=== PATIENT | female | born 1950 | race Asian ===

== ENCOUNTER 2023-02-27 20:28 | Emergency (ER) | payer OTHER ==
[~2023-02-27] VITALS: Ht 165.1 cm; Wt 73.5 kg
[2023-02-27 20:28] VITALS: BP 165/96; TEMP 98.2
[2023-02-27 21:03] LABS: PLATELET COUNT 571 K/uL (152-353)
[2023-02-27 21:12] LABS: POTASSIUM 3.1 mmol/L (3.6-5.2)
[2023-02-28] MEDS ORDERED: AMLODIPINE BESYLATE PO (08:13)
[2023-02-28] MEDS ORDERED: ZIPRASIDONE HYD40 MG PO (08:15)
[2023-02-28] MEDS ORDERED: HALO50IN4 IM (08:18)
[2023-02-28] MEDS ORDERED: LOSA50TA PO (08:19)
[2023-02-28] MEDS ORDERED: HYDR25TA60 PO (08:19)
[2023-02-28] MEDS ORDERED: MIRTAZAPINE7.5 MG PO (08:21)
[2023-02-28] MEDS ORDERED: TRILEPTAL300 MG PO ×2 (08:23→08:36)
[2023-02-28] MEDS ORDERED: PANTOPRAZOLE 40MG TA PO (08:24)
[2023-02-28] MEDS ORDERED: TYLENOL325 MG PO (08:25)
[2023-02-28] MEDS ORDERED: VITAMIN B-12500 MCG PO (08:28)
[2023-02-28] MEDS ORDERED: EQL STOOL SOFT100 MG PO (08:30)
[2023-02-28] MEDS ORDERED: [UNRECOGNIZED DRUG - OTHER] PO (08:31)
[2023-02-28] MEDS ORDERED: ZIPR20CA PO (08:32)
[2023-02-28] MEDS ORDERED: RISP1TAB PO (08:38)
[2023-02-28] MEDS ORDERED: TRAZ50TA36 PO (08:39)
[2023-02-28] MEDS ORDERED: BENADRYL 50M50 MG/ML IM (08:41)
[2023-02-28] MEDS ORDERED: HYDROCODONE BIT1 TA1 PO (08:44)
[2023-02-28] MEDS ORDERED: MIRALAX17 GM/SCOO PO (08:45)
[2023-02-28] MEDS ORDERED: HALO5INJ3 IM (08:46)
== END 2023-02-27 21:46 | disposition still patient (30) ==
LOC: ED 20:28
PROVIDERS: Emergency Medicine
DX: R45.1 Restlessness and agitation (principal); Z11.52 Encounter for screening for COVID-19; Z04.6 Encounter for general psychiatric examination, requested by authority
CPT/HCPCS: 36415; 80053; 85027; 87635; 93005; 99283; U0003